=== PATIENT | male | born 1945 | race Caucasian/White ===

== ENCOUNTER → 2016-12-19 | Outpatient (CLI) | payer OTHER ==
[~2016-12-19] MED LIST: ATEN50TA2 PO; CETI10TA PO; CIPR500T4 OR; FLAG500T OR; LOPI600T PO; VICO5TAB OR; [UNRECOGNIZED DRUG - SUPPLY] TOP
[2016-12-19 11:08] LABS: ANION GAP 12 MEQ/L (8-16); BLOOD UREA NITROGEN 17 MG/DL (7-18); CALCIUM LEVEL 9.7 MG/DL (8.8-10.2); CARBON DIOXIDE LEVEL 23 MEQ/L (21-32); CHLORIDE LEVEL 106 MEQ/L (98-107); CREATININE FOR GFR 1.15 MG/DL (0.70-1.30); GLOMERULAR FILTRATION RATE > 60.0 (>49); GLUCOSE, FASTING 119 MG/DL (80-110); POTASSIUM SERUM 4.2 MEQ/L (3.5-5.1); SODIUM LEVEL 141 MEQ/L (136-145)
--- NOTE | 2016-12-20 11:55 | ECGEPIP ---
Stationary ECG Study [facility] Test Date: 2016-12-19 Pat Name: ELKE JACOBSON Department: Room: - Gender: M [employer] In[employer]: MILLA : 1945 Requested By: Joseline Tomlinson Order Number: [id number] Reading MD: Sanjiv Saxena Measurements Intervals [place] Rate: 69 P: 57 MS: 158 QRS: 7 QRSD: 110 T: 95 QT: 408 QTc: 438 Interpretive Statements SINUS RHYTHM WITH SINUS ARRHYTHMIA NONSPECIFIC ST & T-WAVE ABNORMALITY MINIMAL CHANGE SINCE 11/30/12 Electronically Signed On 12-20-2016 11:55:14 EDT by Sanjiv Saxena
== END ==
LOC: M LAB 09:35
PROVIDERS: ATTEND Surgery
DX: Z01.818 Encounter for other preprocedural examination (principal); I10 Essential (primary) hypertension; E11.9 Type 2 diabetes mellitus without complications

== ENCOUNTER 2020-07-24 11:09 | Emergency (ER) | payer MEDICARE, OTHER ==
[~2020-07-24] VITALS: Ht 177.8 cm; Wt 121.5 kg
[2020-07-24] MEDS ORDERED: ATOR1TAB19 (11:23)
[2020-07-24] MEDS ORDERED: GLIM4TAB5 (11:23)
[2020-07-24] MEDS ORDERED: METF-839 (11:23)
[2020-07-24] MEDS ORDERED: RAMI1CAP24 (11:23)
[2020-07-24] MEDS ORDERED: METO1TAB7 (11:23)
[2020-07-24] MEDS ORDERED: PANT40TA29 (11:23)
[2020-07-24] MEDS ORDERED: HYDR12.55 (11:23)
[2020-07-24] MEDS ORDERED: RAMI1CAP26 (11:23)
[2020-07-24] MEDS ORDERED: NAPR-837 PO (11:58)
[2020-07-24] MEDS ORDERED: SOMA350T PO (11:58)
[2020-07-24 12:18] VITALS: BP 146/78
== END 2020-07-24 16:25 | disposition home or self-care (01) ==
LOC: M ED 11:09
DX: M54.16 Radiculopathy, lumbar region (principal); E11.9 Type 2 diabetes mellitus without complications; I11.9 Hypertensive heart disease without heart failure; Z88.8 Allergy status to other drugs, medicaments and biological substances; Z79.899 Other long term (current) drug therapy

== ENCOUNTER 2021-06-06 13:25 | Emergency (ER) | payer MEDICARE ==
[~2021-06-06] VITALS: Ht 177.8 cm; Wt 120.5 kg
[~2021-06-06 13:25] MED LIST changes: +ATOR1TAB19; +GLIM4TAB5; +HYDR12.55; +METF-839; +METO1TAB7; +NAPR-837 PO; +PANT40TA29; +RAMI1CAP24; +RAMI1CAP26; +SOMA350T PO
[2021-06-06 13:26] VITALS: BP 112/75
[2021-06-06] MEDS ORDERED: guaiFENesin ER 600 MG TAB PO ONE (16:25)
[2021-06-06 17:09] LABS: BASO # 0.1 10^3/uL (0.0-0.2); BASO % 0.7 % (0.0-1.0); EOS # 0.2 10^3/uL (0.0-0.5); EOS % 2.1 % (0.0-3.0); HEMATOCRIT 49.2 % (42.0-52.0); HEMOGLOBIN 16.4 g/dl (13.5-17.5); LYMPH # 2.7 10^3/uL (1.5-5.0); LYMPH % 23.6 % (24.0-44.0); MEAN CORPUSCULAR HEMOGLOBIN 29.8 pg (27.0-33.0); MEAN CORPUSCULAR HGB CONC 33.3 g/dl (32.0-36.5); MEAN CORPUSCULAR VOLUME 89.5 fl (80.0-96.0); MONO # 0.8 10^3/uL (0.0-0.8); MONO % 6.8 % (2.0-8.0); NEUTROPHILS # 7.4 10^3/uL (1.5-8.5); NEUTROPHILS % 66.1 % (36.0-66.0); PLATELET COUNT, AUTOMATED 331 10^3/uL (150-450); WHITE BLOOD COUNT 11.3 10^3/uL (4.0-10.0)
[2021-06-06 17:41] LABS: CALCIUM LEVEL 9.5 MG/DL (8.8-10.2); CREATININE FOR GFR 1.4 MG/DL (0.70-1.30); GLOMERULAR FILTRATION RATE 52.7 (>42); POTASSIUM SERUM 3.5 MEQ/L (3.5-5.1)
[2021-06-06] MEDS ORDERED: IPRATROPIUM 0.5MG/ALBUTEROL 2.5MG INH SOL UD 3ML (DUONEB) NEB ONE (19:05)
[2021-06-06] MEDS ORDERED: MUCI600T31 PO (19:43)
== END 2021-06-06 20:22 | disposition home or self-care (01) ==
LOC: M ED 13:25
DX: I77.810 Thoracic aortic ectasia (principal); R06.02 Shortness of breath; R05.9 Cough, unspecified; N17.9 Acute kidney failure, unspecified; E11.9 Type 2 diabetes mellitus without complications; Z88.8 Allergy status to other drugs, medicaments and biological substances; Z79.4 Long term (current) use of insulin; Z79.899 Other long term (current) drug therapy

== ENCOUNTER → 2021-06-10 | Outpatient (CLI) | payer MEDICARE ==
[~2021-06-10] MED LIST changes: +MUCI600T31 PO
== END ==
LOC: M LAB 13:16
PROVIDERS: ATTEND Optometrist
DX: H53.2 Diplopia (principal)

== ENCOUNTER → 2021-06-13 | Outpatient (CLI) | payer MEDICARE | LOC: M WUC 14:29 | PROVIDERS: ATTEND Family Medicine | DX: M16.12 Unilateral primary osteoarthritis, left hip (principal) ==

== ENCOUNTER → 2021-07-19 | Outpatient (CLI) | payer MEDICARE | LOC: M PLAIMG 14:53 | PROVIDERS: ATTEND Ophthalmology | DX: H49.00 Third [oculomotor] nerve palsy, unspecified eye (principal) ==

== ENCOUNTER → 2021-09-13 | Outpatient (CLI) | payer MEDICARE ==
[2021-09-13 16:54] LABS: BASO # 0.1 10^3/uL (0.0-0.2); BASO % 0.7 % (0.0-1.0); EOS # 0.3 10^3/uL (0.0-0.5); EOS % 3.4 % (0.0-3.0); HEMATOCRIT 44.3 % (42.0-52.0); HEMOGLOBIN 14.4 g/dl (13.5-17.5); LYMPH # 2.2 10^3/uL (1.5-5.0); MEAN CORPUSCULAR HGB CONC 32.5 g/dl (32.0-36.5); MEAN CORPUSCULAR VOLUME 89.3 fl (80.0-96.0); MONO # 0.6 10^3/uL (0.0-0.8); MONO % 7.4 % (2.0-8.0); NEUTROPHILS % 61.3 % (36.0-66.0); PLATELET COUNT, AUTOMATED 187 10^3/uL (150-450); RED BLOOD COUNT 4.96 10^6/uL (4.30-6.10); WHITE BLOOD COUNT 8.2 10^3/uL (4.0-10.0)
[2021-09-13 17:20] LABS: ALBUMIN 3.3 GM/DL (3.2-5.2); ALT/SGPT 21 U/L (12-78); BILIRUBIN,TOTAL 0.3 MG/DL (0.2-1.0); BLOOD UREA NITROGEN 13 MG/DL (7-18); CALCIUM LEVEL 9.3 MG/DL (8.8-10.2); CARBON DIOXIDE LEVEL 28 MEQ/L (21-32); CHLORIDE LEVEL 107 MEQ/L (98-107); CREATININE FOR GFR 1.06 MG/DL (0.70-1.30); GLOMERULAR FILTRATION RATE > 60.0 (>42); GLUCOSE, FASTING 146 MG/DL (70-100); POTASSIUM SERUM 3.9 MEQ/L (3.5-5.1); SODIUM LEVEL 144 MEQ/L (136-145); TOTAL PROTEIN 6.5 GM/DL (6.4-8.2); VITAMIN B12 LEVEL 349 PG/ML
== END ==
LOC: M LAB 14:49
PROVIDERS: ATTEND Psychiatry & Neurology Neurology
DX: H53.2 Diplopia (principal); H02.409 Unspecified ptosis of unspecified eyelid

== ENCOUNTER → 2021-09-16 | Outpatient (CLI) | payer MEDICARE | LOC: M LAB 12:49 | PROVIDERS: ATTEND Psychiatry & Neurology Neurology | DX: H53.2 Diplopia (principal) ==